=== PATIENT | female | born 1930 | race African-American/Black ===

== ENCOUNTER 2018-08-21 15:45 | Inpatient (IN) | payer MEDICARE ==
[~2018-08-21 15:45] MED LIST: Lidocaine 1% PF 5 ML VIAL ONE; Ondansetron PF 4 MG/2 ML Vial ONE
[2018-08-21] MEDS ORDERED: Iopamidol 370 76% 100 ML VIAL ONE (17:15)
--- NOTE | 2018-08-21 17:23 | ULT ---
GALLBLADDER ULTRASOUND: INDICATIONS: Right upper quadrant pain. FINDINGS: No focal hepatic lesion. There is wall thickening and distention of the gallbladder with evidence of cholelithiasis and pericholecystic fluid. 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 The commo n duct measures 4 mm. There is mild perihepatic ascites. IMPRESSION: Evidence of cholelithiasis and cholecystitis. Recommend surgical consultation. POS: [facility]
[2018-08-21 17:33] LABS: Hemoglobin 15.7 g/dL (12.0-16.0); Mean Corpuscular Hemoglobin 29.9 pg (27.0-31.0); Mean Corpuscular Volume 90.7 fL (78.0-98.0); Mean Platelet Volume 8.4 fL (7.4-10.4); Platelet Count 237 thou/uL (130-400); RBC Distribution Width 13.4 % (11.5-14.5); Red Blood Cell (RBC) Count 5.25 mill/uL (4.20-5.40); White Blood Cell (WBC) Count 21.5 thou/uL (4.8-10.8)
[2018-08-21] MEDS ORDERED: MEROPENEM 1 GM/50 ML 1 GM in Premix Bag 1 BAG IVPB ONE (17:45)
[2018-08-21 17:46] LABS: Bilirubin Small (Negative); Blood, Urine Trace (Negative); Clarity CLOUDY (Clear); Glucose, Urine (Dipstick) 100 mg/dL (Negative); Leukocyte Small (Negative); Nitrite Negative (Negative); Protein, Urine (Dipstick) 300 mg/dL (Neg-Trace); pH, Urine 5.5 (5.0-9.0)
[2018-08-21 17:50] LABS: RBC/HPF 0-3 HPF (0-3)
[2018-08-21 17:51] LABS: Pathc Cast-AUWi Flag 16.13 (0-2.49)
[2018-08-21 17:52] LABS: ALT (SGPT) 20 U/L (8-55); AST (SGOT) 21 U/L (5-34); Albumin 3.8 g/dL (3.4-4.8); Alkaline Phosphatase 64 U/L (40-150); Anion Gap 20 mmol/L (10-20); BUN (Urea Nitrogen) 16 mg/dL (9.8-20.1); Bilirubin, Total 1.2 mg/dL (0.2-1.2); Calc. Creatinine Clearance 0 mL/min (70-130); Calcium 9.9 mg/dL (7.8-10.44); Carbon Dioxide 22 mmol/L (23-31); Chloride 95 mmol/L (98-107); Estimated GFR-MDRD 40; Globulin 3.7 g/dL (2.4-3.5); Glucose 215 mg/dL (83-110); Lipase 9 U/L (8-78); Potassium 3.4 mmol/L (3.5-5.1); Protein, Total 7.5 g/dL (6.0-8.3); Sodium 134 mmol/L (136-145)
[2018-08-21 17:55] LABS: Band 10 % (5-11); Lymphocytes 2 % (21-51); MDiff Complete? YES; Monocytes 1 % (0-10); Neutrophil 87 % (42-75); PLT Morphology Comment Appears Adequate
[2018-08-21 18:02] LABS: Bacteria/HPF 1+ HPF (None Seen); Hyaline Casts/LPF NONE SEEN LPF (0-3 Hyaline); Manual Microscopic Reviewed? No Path Casts Seen; Renal Epithelial None Seen HPF (0-3); Transitional Epithelial NONE SEEN HPF (0-3)
--- NOTE | 2018-08-21 18:43 | CT ---
CT ABDOMEN AND PELVIS WITH CONTRAST: INDICATIONS: Right upper quadrant pain. FINDINGS: As is depicted in the preceding gallbladder ultrasound exam, there is distention and inflammation of the gallbladder, which contains gallstones, compatible with acute cholecystitis. There is a calcifie d cyst anteriorly, exophytic from the lower pole left kidney, measuring 2.7 cm in diameter. Addition al punctate internal densities are present. There is a small hypodensity at the posterior medial rig ht kidney, too small to further characterize. Diffuse vascular disease is present. No acute process at the visualized lung bases. The bowel is incompletely evaluated without enteric contrast. There are several colonic diverticula. No pancreatic inflammation is seen. IMPRESSION: 1. Evidence of cholecystitis, as is depicted on the preceding gallbladder ultrasound. Recommend tanya gical consultation. 2. Complex exophytic cystic lesion of the inferior pole left kidney, incompletely evaluated on the b asis of this examination. Follow-up imaging with renal mass protocol CT abdomen may be obtained on a nonemergent basis when clinically feasible. CODE T POS: [facility]
[2018-08-21 20:16] LABS: PTT 30.5 SEC (22.9-36.1); Prothrombin Time 22.5 SEC (12.0-14.7)
[2018-08-21] MEDS ORDERED: Phytonadione 10 MG in Sodium Chloride 0.9% 50 ML IVPB SCH (20:45)
[2018-08-21 21:07] VITALS: BMI 29.9
--- NOTE | 2018-08-21 22:03 | HP ---
SUBJECTIVE: This is an 88-year-old female who presented to the emergency room with complaints of right upper quadrant pain since this morning. The patient reports vomiting x1 today. The patient denies any nausea, diarrhea, or fever. The patient also reports bloating. The patient denies any fever or chills. She did eat a small amount of dinner last night, but has not eaten anything today due to the nausea. HOME MEDICATIONS: 1. Amlodipine 2.5 mg daily. 2. Metformin 500 mg b.i.d. 3. Amiodarone 200 mg daily. 4. Hydrochlorothiazide 25 mg daily. 5. Metoprolol 100 mg b.i.d. 6. Warfarin 5 mg daily and 2.5 mg on Fridays. PAST MEDICAL HISTORY: Diabetes, hyperlipidemia, asthma, hypertension, pacemaker with AICD, uterine cancer, and atrial fibrillation. SURGICAL HISTORY: Hysterectomy, and uterus removed due to uterine cancer. SOCIAL HISTORY: Denies any alcohol use. Reports smoking less than a pack a day in her 30s, denies any illegal drug use. ALLERGIES: NO KNOWN DRUG ALLERGIES. REVIEW OF SYSTEMS: GENERAL: The patient denies any fever, chills, or weakness. HEENT: Denies any visual changes. Denies any recent cough, cold, or sore throat. CARDIOVASCULAR: Reports having a pacemaker. Denies any chest pain, diaphoresis, or pedal edema. RESPIRATORY: Denies any shortness of breath, cough, wheezing, or sputum. GI: The patient reports abdominal pain with one episode of vomiting. Pain is worse in the right upper quadrant. Denies diarrhea. Denies constipation. : Denies any hematuria, frequency, hesitancy, or dysuria. MUSCULOSKELETAL: Denies any pain, joint stiffness, or swelling. PHYSICAL EXAMINATION: VITAL SIGNS: Temperature 99.5, pulse 78, respirations 18, SpO2 95% on room air. GENERAL: The patient lying in bed, no distress at this time, appears pain-free and nontoxic appearing. HEENT: Atraumatic, normocephalic. Trachea is midline. Mucous membranes are moist. RESPIRATORY: Bilateral breath sounds are clear. No wheezes, rales, or rhonchi. Respirations are even and nonlabored. CARDIOVASCULAR: The patient with regular rate and rhythm. Heart sounds are normal with S1 and S2 and no murmurs. ABDOMEN: Tender, worse in the right upper quadrant, nondistended abdomen with active bowel sounds. MUSCULOSKELETAL: The patient with normal strength and sensation. No edema. NEURO: The patient with a GCS of 15. No focal deficits. LABORATORY DATA: WBC 21.5, RBC 5.25, hemoglobin 15.7, hematocrit 47.6, neutrophils 85, bands 10, lymphocytes 2, PT 22.5, INR 2.0, APTT 30.5. Sodium 134, potassium 3.4, chloride 95, carbon dioxide 22, creatinine 1.48, estimated GFR 40, glucose 215, calcium 9.9, total bilirubin 1.2, AST 21, ALT 20, alkaline phos 64. Serum total protein 7.5, albumin 3.8, globulin 3.7. Urine protein 300, glucose 100, trace of ketones, trace of blood, small bilirubin, small leukocyte esterase, positive wbc's, 4 to 6 squamous cells, bacteria 1+. DIAGNOSTICS: CT abdomen, impression; evidence of cholecystitis. Abdominal ultrasound; evidence of cholelithiasis and cholecystitis. IMPRESSION: 1. Acute cholecystitis. 2. History of hypertension and diabetes. PLAN: 1. We will place the patient n.p.o. Continue the patient's antibiotics as she received meropenem in the emergency room. 2. We will give the patient 2 units of FFP and vitamin K as she is on Coumadin. 3. This patient was examined with Dr. Dickerson. Job ID: [id number]
[2018-08-21] MEDS ORDERED: Sodium Chloride 0.9% 1,000 ML IV SCH (22:15)
[2018-08-21] MEDS ORDERED: Dextrose 50% Abboject 50 ML SYRINGE SLOW IVP PRN (22:36)
[2018-08-21] MEDS ORDERED: Ondansetron PF 4 MG/2 ML Vial IVP PRN (22:36)
[2018-08-21] MEDS ORDERED: Insulin Regular 300 UNITS/3 ML VIAL SC PRN (22:36)
[2018-08-21] MEDS ORDERED: hydrALAZINE 20 MG/ML VIAL SLOW IVP PRN (22:36)
[2018-08-21] MEDS ORDERED: Dextrose 5% in Water 1,000 ML IV PRN (22:36)
[2018-08-21] MEDS ORDERED: Ondansetron HCl/PF 4 MG/2 ML Vial IVP PRN (23:09)
[2018-08-21] MEDS ORDERED: Fentanyl 100 MCG/2 ML VIAL ONE (23:13)
[2018-08-21] MEDS ORDERED: Famotidine/PF 20 mg/2ml Vial ONE (23:15)
[2018-08-21] MEDS ORDERED: Bupivacaine/Epinephrine 0.25% 30 ML VIAL ONE (23:17)
[2018-08-22] MEDS ORDERED: MEROPENEM 1 GM/50 ML 1 GM in Premix Bag 1 BAG IVPB SCH (02:00)
--- NOTE | 2018-08-22 04:59 | OP ---
DATE OF PROCEDURE: 08/22/2018 PREOPERATIVE DIAGNOSIS: Acute cholecystitis with cholelithiasis. POSTOPERATIVE DIAGNOSIS: Acute cholecystitis with cholelithiasis. OPERATION PERFORMED: Laparoscopic cholecystectomy. ANESTHESIA: General endotracheal ESTIMATED BLOOD LOSS: 200 mL. FLUIDS GIVEN: 2 units of fresh frozen plasma and 300 mL crystalloids. COUNTS: Sponge and instrument count were verified as correct x2. COMPLICATIONS: None apparent at the time of operation. INDICATIONS FOR OPERATION: An 88-year-old woman presented with recurrent epigastric and right upper quadrant abdominal pain at this time was on . Clinical radiographic examination was consistent with acute cholecystitis with cholelithiasis, for which, the patient was brought to the operating room for cholecystectomy. Given patient is on chronic warfarin, she received 2 units of fresh frozen plasma and vitamin K 2 mg preoperatively. The findings were consistent with gangrenous gallbladder in the usual anatomic location, completely encased by omental adhesions. DESCRIPTION OF OPERATION: Informed consent obtained from the patient, who was brought to the operating room and placed in supine position. Following general anesthesia, the abdomen was sterilely prepped and draped in the usual fashion. The skin below the umbilicus was infiltrated with 0.25% Marcaine with epinephrine. A small curvilinear infraumbilical incision was made using 11 scalpel. Next, umbilical stalk grasped with Chace and elevated. Veress needle was inserted through the incision first in the peritoneal cavity through which the abdomen was insufflated with 2.7 L of CO2. Intraabdominal pressure noted at 3 mmHg present for abdomen insufflation. Veress needle was removed and a 5-mm trocar introduced using a Visiport under laparoscopy. Laparoscopy confirmed proper placement of the port. No injuries to underlying structures. Additional laparoscopy reveals gallbladder in usual anatomic location, completely encased by omental adhesions. Under laparoscopy, 12-mm epigastric and two 5-mm right lateral subcostal ports were placed after the overlying skin was infiltrated with 0.25% Marcaine with epinephrine. Appropriate incision was made. The patient is placed in a reverse Trendelenburg position, rotated to her left. I introduced [place] dissector through the epigastric port to take down omental adhesions to expose the fundus of the gallbladder, which was quite gangrenous. I then introduced a Prestige grasper through the right lateral subcostal port, attempted to grasp the fundus of the gallbladder which was markedly tense and thick-walled. I did start to decompress the fundus of the gallbladder using cautery, evacuating excess white bile. At that juncture, the Prestige grasper was reapplied to the fundus of the gallbladder, which was elevated cephalad. Omental adhesions were dissected from remainder of the gallbladder. The gallbladder was markedly distended and elongated and torturous. Dissection of the triangle of Calot was tedious, but meticulously accomplished. This was done using blunt and sharp dissections. The cystic duct was then divided between clips applying 2 clips proximally and 1 clip at the junction of the cystic duct and gallbladder. Cystic artery was dissected free from surrounding structures and divided between clips in a similar fashion. Gallbladder surface removed from the liver bed and delivered of the abdominal cavity using an EndoCatch. The gallbladder fossa was oozing of venous blood. Hemostasis was readily achieved using Arixtra. A #19 Miguel drain was introduced into the gallbladder fossa and allowed to exit the abdominal cavity through the right lateral subcostal ports. The drain was secured to anterior abdominal wall using 2-0 silk suture. Finding no other pathology, laparoscopy was terminated. Fascia of the epigastric port was closed using 0 Vicryl suture and Endo Close device on the laparoscopy. Abdomen was desufflated. Remaining of the ports and instruments were removed and accounted for. Skin incision was closed using 4-0 Monocryl suture in subcuticular fashion. Dermabond was applied over incisional closure. The patient tolerated the operation without any apparent complication and was returned to the recovery room in satisfactory condition. Job ID: [id number]
[2018-08-22] MEDS: Acetaminophen 1,000 MG in Premix Bag 1 BAG IVPB PRN ×2 (07:46→21:38)
[2018-08-22] MEDS: Piperacillin/Tazobactam 3.375 GM in Sodium Chloride 0.9% 100 ML IVPB SCH ×2 (11:58→17:34)
[2018-08-22 12:09] LABS: Hemoglobin 12.7 g/dL (12.0-16.0); Mean Corpuscular HGB CONC 32.3 g/dL (32.0-36.0); Mean Corpuscular Hemoglobin 29.3 pg (27.0-31.0); Mean Corpuscular Volume 90.7 fL (78.0-98.0); Mean Platelet Volume 8.6 fL (7.4-10.4); Platelet Count 179 thou/uL (130-400); RBC Distribution Width 13.4 % (11.5-14.5); Red Blood Cell (RBC) Count 4.35 mill/uL (4.20-5.40); White Blood Cell (WBC) Count 5.4 thou/uL (4.8-10.8)
[2018-08-22 12:18] LABS: ALT (SGPT) 52 U/L (8-55); AST (SGOT) 68 U/L (5-34); Albumin 2.7 g/dL (3.4-4.8); Alkaline Phosphatase 56 U/L (40-150); Anion Gap 13 mmol/L (10-20); BUN (Urea Nitrogen) 17 mg/dL (9.8-20.1); Bilirubin, Total 1.4 mg/dL (0.2-1.2); Calc. Creatinine Clearance 47 mL/min (70-130); Calcium 8.2 mg/dL (7.8-10.44); Carbon Dioxide 22 mmol/L (23-31); Chloride 105 mmol/L (98-107); Estimated GFR-MDRD 59; Globulin 2.7 g/dL (2.4-3.5); Glucose 156 mg/dL (83-110); Potassium 2.8 mmol/L (3.5-5.1); Protein, Total 5.4 g/dL (6.0-8.3); Sodium 137 mmol/L (136-145)
[2018-08-22] MEDS ORDERED: Sodium Chloride 0.9% 500 ML IV SCH (12:30)
[2018-08-22 12:34] LABS: Band 36 % (5-11); Lymphocytes 8 % (21-51); MDiff Complete? YES; Metamyelocyte 1 % (0-0); Monocytes 6 % (0-10); Myelocyte 2 % (0-0); Neutrophil 46 % (42-75); PLT Morphology Comment Appears Adequate; Vacuoles SLIGHT
[2018-08-22 12:36] LABS: Magnesium 1.4 mg/dL (1.6-2.6); Phosphorus 2.2 mg/dL (2.3-4.7)
[2018-08-22] MEDS ORDERED: Potassium Chloride 40 MEQ in Sodium Chloride 0.9% 250 ML 250 ML IVPB SCH (13:00)
[2018-08-22] MEDS: Sodium Chloride 0.9% 1,000 ML IV SCH ×2 (13:39→20:42)
[2018-08-22] MEDS ORDERED: Dextrose 5% in Water 1,000 ML IV PRN (14:54)
[2018-08-22] MEDS ORDERED: Dextrose 50% Abboject 50 ML SYRINGE SLOW IVP PRN (14:54)
[2018-08-22] MEDS ORDERED: Insulin Regular 300 UNITS/3 ML VIAL SC PRN (14:57)
[2018-08-22 16:01] LABS: Hemoglobin 12.2 g/dL (12.0-16.0); Mean Corpuscular HGB CONC 32.6 g/dL (32.0-36.0); Mean Corpuscular Hemoglobin 29.6 pg (27.0-31.0); Mean Corpuscular Volume 90.9 fL (78.0-98.0); Mean Platelet Volume 8.7 fL (7.4-10.4); Platelet Count 171 thou/uL (130-400); RBC Distribution Width 13.3 % (11.5-14.5); Red Blood Cell (RBC) Count 4.13 mill/uL (4.20-5.40); White Blood Cell (WBC) Count 8.1 thou/uL (4.8-10.8)
[2018-08-22 16:07] LABS: INR-International Normal Ratio 1.4; PTT 29.7 SEC (22.9-36.1)
[2018-08-22 16:21] LABS: Anion Gap 11 mmol/L (10-20); BUN (Urea Nitrogen) 17 mg/dL (9.8-20.1); Band 22 % (5-11); Calc. Creatinine Clearance 48 mL/min (70-130); Calcium 8.1 mg/dL (7.8-10.44); Carbon Dioxide 25 mmol/L (23-31); Chloride 105 mmol/L (98-107); Estimated GFR-MDRD 61; Glucose 148 mg/dL (83-110); Lymphocytes 9 % (21-51); MDiff Complete? YES; Magnesium 1.5 mg/dL (1.6-2.6); Monocytes 4 % (0-10); Neutrophil 65 % (42-75); PLT Morphology Comment Appears Adequate; Phosphorus 2.6 mg/dL (2.3-4.7); Potassium 3.2 mmol/L (3.5-5.1); Sodium 138 mmol/L (136-145)
--- NOTE | 2018-08-22 17:35 | PRG ---
DATE OF SERVICE: 08/22/2018 SUBJECTIVE: Ellen Hazel is an 88-year-old female undergoing laparoscopic cholecystectomy at midnight by Dr. Dickerson. Patient's plan was to observe her for 24 hours due to her severe cholecystitis. She was given vitamin K preoperatively. She was on Coumadin. She has also received fresh frozen plasma. She had acute cholecystitis and a drain was left in place. This morning, the patient seemed to be doing well. At time we saw her mid morning, she had not been out of bed. Her nurse had tried to get her out of bed, but the patient was too weak. The patient lives at home and ambulates independently and still drives. OBJECTIVE: VITAL SIGNS: Temperature 98.6 degrees, 78 heart rate, blood pressure 127/60. LUNGS: Clear to auscultation. CARDIAC: Regular rhythm without murmur or gallop. ABDOMEN: Soft, nontender. Surgical wounds look good. Drain, serosanguineous drainage more serous. Output not recorded. LABORATORY DATA: White count 8, hemoglobin 12 (down from 15.7 preoperatively). Basic metabolic profile is normal except for potassium of 2.8 this morning. She was given potassium, it is 3.2 this afternoon. Recheck of her hemoglobin this afternoon reveals it is stable at 12.2, compared to 11.44 and 12.7. ASSESSMENT: After I had seen the patient, I helped the patient's nurse to get her into a chair. The patient was able to stand assist and did fairly well. She did have problems getting from a supine to a seated position however. Later in the morning, we received a report that the patient's blood pressure dropped to 70. She had been saline locked. She is given a 500 mL bolus of fluid and her blood pressure returned to normal. The patient, however, suffered a code green because of diminished respirations. She was transferred to the [facility]. Since that transfer, her blood pressure has been stable. Overall, the patient is doing well. Her potassium is low and has been corrected. We will check a liver function test tomorrow and observe her in [facility] tonight. Hopefully, she can be discharged home tomorrow. Her bilirubin is slightly elevated. We will check her hepatic functions tomorrow. Job ID: [id number]
[2018-08-22] MEDS ORDERED: Potassium Phosphate 30 MMOL in Sodium Chloride 0.9% 500 ML IVPB SCH (18:00)
[2018-08-22] MEDS ORDERED: Magnesium 2 GM/50 ML 2 GM in Premix Bag 1 BAG IVPB SCH (18:00)
[2018-08-22] MEDS ORDERED: Atorvastatin Calcium 20 MG TAB PO SCH (21:00)
[2018-08-23] MEDS: Piperacillin/Tazobactam 3.375 GM in Sodium Chloride 0.9% 100 ML IVPB SCH ×3 (00:25→12:46)
[2018-08-23 06:59] LABS: #Lymphocytes 1.2 thou/uL (1.20-3.40); #Monocytes 0.9 thou/uL (0.11-0.59); #Neutrophils 7.3 thou/uL (1.40-6.50); %Basophils 0.2 % (0.0-1.0); %Eosinophils 0.2 % (0.0-10.0); %Lymphocytes 12.7 % (21.0-51.0); %Monocytes 9.2 % (0.0-10.0); %Neutrophils 77.8 % (42.0-75.0); Hemoglobin 11.4 g/dL (12.0-16.0); Mean Corpuscular HGB CONC 31.8 g/dL (32.0-36.0); Mean Corpuscular Hemoglobin 29.7 pg (27.0-31.0); Mean Corpuscular Volume 93.3 fL (78.0-98.0); Mean Platelet Volume 10.1 fL (7.4-10.4); Platelet Count 159 thou/uL (130-400); RBC Distribution Width 13.6 % (11.5-14.5); Red Blood Cell (RBC) Count 3.84 mill/uL (4.20-5.40); White Blood Cell (WBC) Count 9.4 thou/uL (4.8-10.8)
[2018-08-23 07:09] LABS: INR-International Normal Ratio 1.3; Prothrombin Time 16.1 SEC (12.0-14.7)
[2018-08-23 07:23] LABS: ALT (SGPT) 48 U/L (8-55); AST (SGOT) 46 U/L (5-34); Albumin 2.8 g/dL (3.4-4.8); Alkaline Phosphatase 68 U/L (40-150); Anion Gap 11 mmol/L (10-20); BUN (Urea Nitrogen) 16 mg/dL (9.8-20.1); Bilirubin, Direct 0.6 mg/dL (0.1-0.3); Calc. Creatinine Clearance 52 mL/min (70-130); Calcium 8.3 mg/dL (7.8-10.44); Carbon Dioxide 23 mmol/L (23-31); Chloride 107 mmol/L (98-107); Estimated GFR-MDRD 67; Glucose 103 mg/dL (83-110); Magnesium 2.2 mg/dL (1.6-2.6); Phosphorus 3.8 mg/dL (2.3-4.7); Protein, Total 5.9 g/dL (6.0-8.3); Sodium 137 mmol/L (136-145)
[2018-08-23] MEDS ORDERED: Acetaminophen 500 MG TAB PO PRN (09:46)
[2018-08-23] MEDS ORDERED: traMADol HCl 50 MG TAB PO PRN ×2 (09:47)
[2018-08-23] MEDS ORDERED: Ketorolac Tromethamine 30 MG/ML VIAL IVP SCH (10:00)
[2018-08-23] MEDS: Sodium Chloride 0.9% 1,000 ML IV SCH (10:02)
[2018-08-23 10:56] VITALS: TEMP 99.2
[2018-08-23] MEDS ORDERED: Ibuprofen 600 MG TAB PO PRN (16:00)
[2018-08-23 16:28] VITALS: BP 129/96
== END 2018-08-23 16:59 | DRG 419 ==
LOC: ERS 15:45 → 3SE 18:00 → IMCU/EMU 08-22 13:13
PROVIDERS: ADMIT Surgery; ATTEND Surgery
PROC: 30233K1 Transfusion of Nonautologous Frozen Plasma into Peripheral Vein, Percutaneous Approach (ICD-10-PCS; principal; 2018-08-22)
PROC: 0FT44ZZ Resection of Gallbladder, Percutaneous Endoscopic Approach (ICD-10-PCS; 2018-08-22)
DX: K80.00 Calculus of gallbladder with acute cholecystitis without obstruction (principal); K82.A1 Gangrene of gallbladder in cholecystitis; E11.9 Type 2 diabetes mellitus without complications; E78.5 Hyperlipidemia, unspecified; J45.909 Unspecified asthma, uncomplicated; I10 Essential (primary) hypertension; I48.91 Unspecified atrial fibrillation; Z95.810 Presence of automatic (implantable) cardiac defibrillator; Z90.710 Acquired absence of both cervix and uterus; Z85.42 Personal history of malignant neoplasm of other parts of uterus; Z79.84 Long term (current) use of oral hypoglycemic drugs; Z79.899 Other long term (current) drug therapy; Z79.01 Long term (current) use of anticoagulants
CPT/HCPCS: 36415; 36416; 36430; 51701; 74177; 76705; 80048; 80053; 80076; 81003; 81015; 83690; 83735; 84100; 85025; 85610; 85730; 86850; 86900; 86901; 88304; 96365; A4353; J0131; J1885; J2001; J2185; J2405; J2543; J3010; J3430; J3480; J7050; P9059; S0028